=== PATIENT | female | born 1960 | race American Indian/Alaskan Native ===

== ENCOUNTER 2017-06-14 09:44 | Outpatient (CLI) | payer MEDICARE ==
--- NOTE | 2017-06-14 11:51 | Ultrasound Report ---
ULTRASOUND ABDOMEN LIMITED: TECHNIQUE: Transabdominal ultrasound with color Doppler interrogation. HISTORY: right upper quadrant abdominal pain. COMPARISON: none. FINDINGS: LIVER: Normal. BILIARY SYSTEM: Cholecystectomy. No biliary dilatation is identified. The CBD measures 4 mm. PANCREAS: Normal. RIGHT KIDNEY: Normal. PROXIMAL AORTA: Normal. ASCITES: None. IMPRESSION: Cholecystectomy, otherwise, unremarkable right upper quadrant ultrasound.
== END 2017-06-14 09:45 | disposition home or self-care (01) ==
LOC: US 09:44
PROVIDERS: ATTEND Internal Medicine Gastroenterology
DX: K59.00 Constipation, unspecified (principal); Z90.49 Acquired absence of other specified parts of digestive tract
CPT/HCPCS: 76705

== ENCOUNTER 2017-11-03 07:36 | Outpatient (CLI) | payer MEDICARE ==
--- NOTE | 2017-11-03 08:22 | Cat Scan Report ---
CT UPPER EXTREMITY LEFT WITHOUT CONTRAST History: Pain in left shoulder. Technique: Helical CT images in the 1.25 mm intervals with sagittal and coronal reformatted images. Findings: No comparison at this facility. CT demonstrates a comminuted chip fracture or avulsion fracture along the anterolateral surface of the left femoral head. The remaining bony structures are intact. Normal articulation at the left shoulder. Minimal acromioclavicular osteoarthritis. The soft tissues are unremarkable. IMPRESSION: Proximal left humerus fracture as described.
== END 2017-11-03 07:37 | disposition home or self-care (01) ==
LOC: CT 07:36
PROVIDERS: ATTEND Orthopaedic Surgery
DX: S42.202A Unspecified fracture of upper end of left humerus, initial encounter for closed fracture (principal); I10 Essential (primary) hypertension; E11.9 Type 2 diabetes mellitus without complications; M19.012 Primary osteoarthritis, left shoulder; X58.XXXA Exposure to other specified factors, initial encounter; Y93.89 Activity, other specified; Y92.89 Other specified places as the place of occurrence of the external cause; Y99.8 Other external cause status

== ENCOUNTER 2018-01-09 12:19 | Emergency (ER) | payer MEDICARE ==
[2018-01-09] MEDS ORDERED: PEPCID IV ONE (14:27)
[2018-01-09] MEDS ORDERED: NACL 0.9% 1000 ML 1,000 ML IV ONE ×2 (14:27→14:28)
[2018-01-09] MEDS ORDERED: ZOFRAN IV ONE (14:27)
[2018-01-09] MEDS ORDERED: TORADOL IV ONE (14:27)
[2018-01-09] MEDS ORDERED: HumuLIN R IV ONE (14:28)
--- NOTE | 2018-01-09 14:31 | Emergency Department Report ---
Blank Doc - Documentation Documentation: Patient is a 53-year-old [place] female is presenting with headache. Patient states than feeling ill for the past day. Patient also has some nausea vomiting. Patient states the headache is throbbing sensation in bilateral temples and forehead. Patient denies any fevers chills cough cold congestion. Patient blood sugar is elevated at 380. Patient is a insulin-dependent diabetic with a history of hypertension. Brief physical exam patient's heart and lung with some old limits. Patient is moving all extremities well with no focal deficit. Patient removed her treatment room for IV fluids to reduce her blood sugar and the patient will be reassessed.
[2018-01-09 15:06] LABS: Hematocrit 30.5 % (30.3-42.9); Mean Corpuscular HGB Conc 33 % (30-34); Mean Corpuscular Volume 76 fl (79-97); Platelet Count 231 K/mm3 (140-440); Red Blood Count 4.02 M/mm3 (3.65-5.03); Red Cell Distribution Width 16.1 % (13.2-15.2)
[2018-01-09 15:16] LABS: Mean Corpuscular Hemoglobin 25 pg (28-32)
[2018-01-09 15:17] LABS: BUN/Creatinine Ratio 13; Blood Urea Nitrogen 8 mg/dL (7-17); Calcium 9.2 mg/dL (8.4-10.2); Hemolysis Index 5
--- NOTE | 2018-01-09 15:28 | Cat Scan Report ---
CT head without contrast: Headaches. Axial imaging demonstrates normal cerebral anatomy. There is a slight decreased degree of periventricular white matter change. A small focal area of decreased attenuation is identified at the periphery of the left caudate nucleus. No evidence of hemorrhage, mass effect, or extracerebral collection is noted. The visualized bones and paranasal sinuses are unremarkable. Impression: Minimal changes of degenerative white matter. Impression small lacunar infarct of the left caudate nucleus.
--- NOTE | 2018-01-09 16:30 | Emergency Department Report ---
ED Headache HPI - General Chief Complaint: Nausea/Vomiting/Diarrhea Stated Complaint: VOMITING/ HEADACHE Time Seen by Provider: 01/09/18 14:23 - History of Present Illness Initial Comments: This is a 57-year-old female nontoxic, well nourished in appearance, no acute signs of distress presents to the ED with c/o of acute on chronic headache. Patient describes headache as diffuse with level of 3 out of 10 and throbbing and aching. Patient denies thunderclap headache. Patient denies any radiation of pain. Patient denies any head trauma. Patient denies any visual changes. Patient denies any facial drooping or abnormal strength. Patient denies worse headache. Patient stated that darkness makes headache better and bright lights make the headache worse. Patient denies any numbness, tingling, fever, chills, nausea, vomiting, chest pain, shortness of breath, stiff neck. Patient denies any radiation of pain. Patient denies any allergies. Past medical history includes diabetes, HTN. Timing/Duration: episodic Quality: mild, achy, throbbing Head Injury Location: other (diffuse) Recent Head Trauma: no recent headache/trauma, occasional headaches Associated Symptoms: denies: confusion, fatigue, facial pain, fever/chills, flushing, loss of consciousness, nausea/vomiting, nasal congestion, nasal drainage, numbness in legs/feet, rash, seizures, sinus infection, stiff neck, vision changes, weakness Allergies/Adverse Reactions: Allergies No Known Allergies Allergy (Verified 01/09/18 12:31) Home Medications: Ambulatory Orders Butalb/Acetamin/Caff 50-325-40 [Fioricet] 1 tab PO Q6HR PRN #12 tab 01/09/18 Sulfamethoxazole/Trimethoprim [Bactrim DS TAB] 1 each PO BID #14 tablet ED Review of Systems ROS: Stated complaint: VOMITING/ HEADACHE Other details as noted in HPI Constitutional: denies: chills, fever Eyes: denies: eye pain, eye discharge, vision change ENT: denies: ear pain, throat pain Respiratory: denies: cough, shortness of breath, wheezing Cardiovascular: denies: chest pain, palpitations Endocrine: no symptoms reported Gastrointestinal: denies: abdominal pain, nausea, vomiting, diarrhea Genitourinary: denies: urgency, dysuria, discharge Musculoskeletal: denies: back pain, joint swelling, arthralgia Skin: denies: rash, lesions Neurological: headache. denies: weakness, paresthesias Psychiatric: denies: anxiety, depression Hematological/Lymphatic: denies: easy bleeding, easy bruising ED Past Medical Hx - Past Medical History Previous Medical History?: Yes Hx Hypertension: Yes Hx Diabetes: Yes Additional medical history: HLD - Surgical History Past Surgical History?: Yes Hx Cholecystectomy: Yes Additional Surgical History: hysterectomy - Social History Smoking Status: Current Every Day Smoker Substance Use Type: None - Medications Home Medications: Home Medications Medication Instructions Recorded Confirmed Last Taken Type Butalb/Acetamin/Caff 50-325-40 1 tab PO Q6HR PRN #12 tab 01/09/18 Unknown Rx [Fioricet] Sulfamethoxazole/Trimethoprim 1 each PO BID #14 tablet 01/09/18 Unknown Rx [Bactrim DS TAB] ED Physical Exam - General Limitations: No Limitations General appearance: alert, in no apparent distress - Head Head exam: Present: atraumatic, normocephalic - Eye Eye exam: Present: normal appearance, PERRL, EOMI Pupils: Present: normal accommodation - ENT ENT exam: Present: normal exam, mucous membranes moist - Neck Neck exam: Present: normal inspection, full ROM. Absent: tenderness, meningismus, lymphadenopathy - Respiratory Respiratory exam: Present: normal lung sounds bilaterally. Absent: respiratory distress, wheezes, rales, rhonchi, stridor, chest wall tenderness, accessory muscle use, decreased breath sounds, prolonged expiratory - Cardiovascular Cardiovascular Exam: Present: regular rate, normal rhythm, normal heart sounds. Absent: irregular rhythm, systolic murmur, diastolic murmur, rubs, gallop - GI/Abdominal GI/Abdominal exam: Present: soft, normal bowel sounds. Absent: distended, tenderness, guarding, rebound, rigid, diminished bowel sounds - Extremities Exam Extremities exam: Present: normal inspection, full ROM, normal capillary refill. Absent: tenderness - Back Exam Back exam: Present: normal inspection, full ROM. Absent: tenderness, CVA tenderness (R) - Neurological Exam Neurological exam: Present: alert, oriented X3, CN II-XII intact, normal gait - Expanded Neurological Exam Expanded Patient oriented to: Present: person, place, time Cranial nerves: EOM's Intact: Normal, Gag Reflex: Normal, Facial Sensation: Normal Cerebellar function: Finger to Nose: Normal Upper motor neuron: Pronator Drift: Normal, Sensory Extinction: Normal Sensory exam: Upper Extremity Light Touch: Normal, Upper Extremity Pin Prick: Normal, Upper Extremity Temperature: Normal, UE 2 Point Discrimination: Normal, Lower Extremity Light Touch: Normal, Lower Extremity Pin Prick: Normal, Lower Extremity Temperature: Normal, LE 2 Point Discrimination: Normal Motor strength exam: RUE: 5, LUE: 5, RLE: 5, LLE: 5 Best Eye Response ([place]): (4) open spontaneously Best Motor Response ([place]): (6) obeys commands Best Verbal Response ([place]): (5) oriented [place] Total: 15 - Psychiatric Psychiatric exam: Present: normal affect, normal mood - Skin Skin exam: Present: warm, dry, intact, normal color. Absent: rash ED Course Vital Signs 01/09/18 01/09/18 12:27 15:20 Temperature 98.2 F Pulse Rate 100 H Respiratory 20 16 Rate Blood Pressure 149/68 O2 Sat by Pulse 95 Oximetry - Reevaluation(s) Reevaluation #1: 01/09/18 16:31 Patient is speaking in full sentences with no signs of distress noted. - Consultations Consultation #1: 01/09/18 16:31 Patient has been consulted with Mikey Betts about patient history, physical exam, and labs/CT report and examined and screened patient and agrees to ED plan of care and discharge plan of care. ED Medical Decision Making - Lab Data Result diagrams: 01/09/18 14:54 01/09/18 14:54 - Medical Decision Making This is a 57-year-old female that presents with headache and hyperglycemia. Patient is stable and was examined by me and Dr. Galicia. CT of head obtaiend and dictated by Dr. Santana. I called Dr. Santana to get more information about the scan and he stated that this is very minimal and possible and is not acute. Patient is neurologically stable. There is no stiff neck or neck pain. Vital signs are stable. Patient is afebrile. Patient received treatment in the ED which the patient stated that headache has subsided and resolved. Patient also receivd Insulin in the ED IV and blood sugar lowered to 242. Patient is discharged with Fioricet. Patient was referred to Follow-up with a primary care/neurologist doctor in 2-3 days or if symptoms worsen and continue return to emergency room as soon as possible. At time of discharge, the patient does not seem toxic or ill in appearance. No acute signs of distress noted. Patient agrees to discharge treatment plan of care. No further questions noted by the patient. UA shows UTI. Patient will be discharged with Bactrim. Critical care attestation.: If time is entered above; I have spent that time in minutes in the direct care of this critically ill patient, excluding procedure time. ED Disposition Clinical Impression: Hyperglycemia Headache Qualifiers: Headache type: unspecified Headache chronicity pattern: episodic headache Intractability: not intractable Qualified Code(s): R51 - Headache UTI (urinary tract infection) Qualifiers: Urinary tract infection type: acute cystitis Hematuria presence: without hematuria Qualified Code(s): N30.00 - Acute cystitis without hematuria Disposition: TO HOME OR SELFCARE Is pt being admited?: No Does the pt Need Aspirin: No Condition: Stable Instructions: Acute Headache (ED), Urinary Tract Infection in Women (ED) Additional Instructions: Follow-up with a primary care/neurologist doctor in 2-3 days or if symptoms worsen and continue return to emergency room as soon as possible. Prescriptions: Butalb/Acetamin/Caff 50-325-40 [Fioricet] 1 tab PO Q6HR PRN #12 tab PRN Reason: Headache Sulfamethoxazole/Trimethoprim [Bactrim DS TAB] 1 each PO BID #14 tablet Referrals: PRIMARY MD HORACE [Primary Care Provider] - 3-5 Days JENNIFER HAHN MD [Staff Physician] - 3-5 Days EVAN FLEMING MD [Staff Physician] - 3-5 Days LAMINE JANE MD [Staff Physician] - 3-5 Days [facility] [Outside] - 3-5 Days [facility] [Outside] - 3-5 Days Forms: Work/School Release Form(ED)
[2018-01-09 16:39] LABS: Bacteria,Urine 1+ /HPF (Negative); Bilirubin,Urine NEG (Negative); Blood,Urine SM (Negative); Color,Urine Yellow (Yellow); Mucus,Urine FEW /HPF; Urobilinogen,Urine < 2.0 mg/dL (<2.0)
[2018-01-09 17:23] LABS: Basophils % (Manual) 0 % (0.0-1.8); Eosinophils % (Manual) 0 % (0.0-4.3); Total Cells Counted 100
[2018-01-09 17:24] LABS: RBC Morphology Normal
[2018-01-09 17:32] VITALS: BP 149/66
== END 2018-01-09 16:40 | disposition home or self-care (01) ==
LOC: ED 12:19
DX: E11.65 Type 2 diabetes mellitus with hyperglycemia (principal); N30.00 Acute cystitis without hematuria; I10 Essential (primary) hypertension; F17.200 Nicotine dependence, unspecified, uncomplicated; Z90.49 Acquired absence of other specified parts of digestive tract; Z90.710 Acquired absence of both cervix and uterus
CPT/HCPCS: 36415; 70450; 80048; 81001; 82962; 85007; 85025; 96361; 96374; 96375; 99284; J1885; J2405; J7030; J1815